=== PATIENT | female | born 1975 | race Caucasian/White ===

== ENCOUNTER → 2020-03-07 | Outpatient (CLI) | payer OTHER ==
[2006-05-19 07:53] VITALS: PULSE 88; TEMP 97.7
== END ==
LOC: MC.RAD 02-05 10:45
DX: Z12.31 Encounter for screening mammogram for malignant neoplasm of breast (principal)

== ENCOUNTER → 2021-07-02 | Outpatient (CLI) | payer BC ==
[2006-05-19 07:53] VITALS: PULSE 88; TEMP 97.7
== END ==
LOC: MC.RAD 06-24 11:00
DX: Z12.31 Encounter for screening mammogram for malignant neoplasm of breast (principal)